=== PATIENT | female | born 1950 | race Caucasian/White ===

== ENCOUNTER 2017-10-12 10:14 | Outpatient (CLI) | payer OTHER ==
[~2017-10-12 10:14] MED LIST: SYNTHROID50 MCG
== END 2017-10-12 10:18 | disposition home or self-care (01) ==
LOC: RAD 501 10:14
DX: R06.02 Shortness of breath (principal)

== ENCOUNTER 2018-07-11 08:10 | Outpatient (CLI) | payer OTHER | END 2018-07-11 08:18 | disposition home or self-care (01) | LOC: TOM 08:10 | DX: R10.84 Generalized abdominal pain (principal) ==

== ENCOUNTER 2018-09-26 07:13 | Outpatient (CLI) | payer OTHER | END 2018-09-26 07:17 | disposition home or self-care (01) | LOC: RAD 07:13 | DX: J44.1 Chronic obstructive pulmonary disease with (acute) exacerbation (principal) ==

== ENCOUNTER 2019-01-10 07:56 | Outpatient (CLI) | payer OTHER | END 2019-01-10 07:59 | disposition home or self-care (01) | LOC: TOM 07:56 | DX: R10.9 Unspecified abdominal pain (principal) ==

== ENCOUNTER → 2019-01-17 | Outpatient (CLI) | payer OTHER | END | disposition home or self-care (01) | LOC: MAMO-SONO 01-08 07:45 | DX: Z12.31 Encounter for screening mammogram for malignant neoplasm of breast (principal); Z87.898 Personal history of other specified conditions; N63.10 Unspecified lump in the right breast, unspecified quadrant; N63.20 Unspecified lump in the left breast, unspecified quadrant ==

== ENCOUNTER 2019-03-26 07:16 | Outpatient (CLI) | payer OTHER | END 2019-03-26 07:18 | disposition home or self-care (01) | LOC: NUCLEAR 07:16 | DX: K80.18 Calculus of gallbladder with other cholecystitis without obstruction (principal) | CPT/HCPCS: 78227; A9537 ==

== ENCOUNTER 2019-05-10 11:17 | Outpatient (CLI) | payer OTHER | END 2019-05-10 11:24 | disposition home or self-care (01) | LOC: RAD 11:17 | DX: M54.5 Low back pain (principal) ==

== ENCOUNTER 2019-05-31 08:10 | Outpatient (CLI) | payer OTHER | END 2019-05-31 08:27 | disposition home or self-care (01) | LOC: MRI 08:10 | DX: M54.5 Low back pain (principal) | CPT/HCPCS: 72148 ==

== ENCOUNTER → 2019-08-21 | Outpatient (CLI) | payer OTHER | END | disposition home or self-care (01) | LOC: RAD 07:45 → TOM 07:45 → RAD 09:02 | DX: M25.512 Pain in left shoulder (principal); R10.84 Generalized abdominal pain ==

== ENCOUNTER 2019-11-21 07:56 | Outpatient (CLI) | payer OTHER | END 2019-11-21 13:50 | disposition home or self-care (01) | LOC: RAD 07:56 | DX: N30.00 Acute cystitis without hematuria (principal) ==

== ENCOUNTER 2020-04-03 07:00 | Outpatient (CLI) | payer OTHER | END 2020-04-03 15:00 | disposition home or self-care (01) | LOC: LAB 07:00 | PROVIDERS: ATTEND Urology | DX: N39.0 Urinary tract infection, site not specified (principal); D68.8 Other specified coagulation defects; I10 Essential (primary) hypertension ==

== ENCOUNTER 2020-04-23 05:50 | Day surgery (SDC) | payer OTHER ==
[~2020-04-23 05:50] MED LIST changes: +ALENDRONATE SOD70 MG PO; +ATORVASTATIN CA40 MG PO; +CARAFATE1 GM PO; +LEVOXYL50 MCG PO; +VITAMIN D310 MC4 PO
== END 2020-04-23 13:05 | disposition home or self-care (01) ==
LOC: CIR.AMB 05:50
PROVIDERS: ATTEND Urology
DX: N30.10 Interstitial cystitis (chronic) without hematuria (principal); Z20.828 Contact with and (suspected) exposure to other viral communicable diseases

== ENCOUNTER 2021-01-19 09:25 | Outpatient (CLI) | payer OTHER | END 2021-01-19 09:30 | disposition home or self-care (01) | LOC: MAMO-SONO 09:25 | PROVIDERS: ATTEND Internal Medicine | DX: Z12.31 Encounter for screening mammogram for malignant neoplasm of breast (principal); Z87.898 Personal history of other specified conditions; N63.0 Unspecified lump in unspecified breast ==

== ENCOUNTER 2021-06-24 07:11 | Outpatient (CLI) | payer OTHER | END 2021-06-24 07:17 | disposition home or self-care (01) | LOC: RAD 07:11 | PROVIDERS: ATTEND Internal Medicine | DX: M15.0 Primary generalized (osteo)arthritis (principal); S47.1XXA Crushing injury of right shoulder and upper arm, initial encounter ==

== ENCOUNTER 2021-09-01 11:09 | Outpatient (CLI) | payer OTHER | END 2021-09-01 11:15 | disposition home or self-care (01) | LOC: RAD 11:09 | PROVIDERS: ATTEND Internal Medicine | DX: M54.17 Radiculopathy, lumbosacral region (principal) ==

== ENCOUNTER 2021-10-14 08:11 | Outpatient (CLI) | payer OTHER | END 2021-10-14 08:13 | disposition home or self-care (01) | LOC: TOM 08:11 | PROVIDERS: ATTEND Internal Medicine | DX: R10.9 Unspecified abdominal pain (principal) ==

== ENCOUNTER 2022-04-27 08:12 | Outpatient (CLI) | payer OTHER | END 2022-04-27 08:20 | disposition home or self-care (01) | LOC: MRI 08:12 | PROVIDERS: ATTEND Internal Medicine | DX: N18.2 Chronic kidney disease, stage 2 (mild) (principal) | CPT/HCPCS: 72148 ==

== ENCOUNTER → 2022-04-29 07:00 | Outpatient (CLI) | payer OTHER | END | disposition home or self-care (01) | LOC: LAB 07:00 | PROVIDERS: ATTEND Internal Medicine | DX: N18.2 Chronic kidney disease, stage 2 (mild) (principal) ==

== ENCOUNTER 2022-10-27 09:29 | Outpatient (CLI) | payer OTHER | END 2022-10-27 09:36 | disposition home or self-care (01) | LOC: MAMO-SONO 09:29 | PROVIDERS: ATTEND Internal Medicine | DX: Z12.31 Encounter for screening mammogram for malignant neoplasm of breast (principal) ==

== ENCOUNTER → 2022-10-27 | Outpatient (CLI) | payer OTHER | END | disposition home or self-care (01) | LOC: NUCLEAR 10-12 11:00 | PROVIDERS: ATTEND Internal Medicine | DX: M81.0 Age-related osteoporosis without current pathological fracture (principal) ==

== ENCOUNTER 2023-03-01 09:31 | Outpatient (CLI) | payer OTHER | END 2023-03-01 09:40 | disposition home or self-care (01) | LOC: TOM 09:31 | PROVIDERS: ATTEND Internal Medicine | DX: Z12.2 Encounter for screening for malignant neoplasm of respiratory organs (principal); Z87.891 Personal history of nicotine dependence ==

== ENCOUNTER 2023-03-24 10:23 | Outpatient (CLI) | payer OTHER | END 2023-03-24 10:29 | disposition home or self-care (01) | LOC: RAD 10:23 | PROVIDERS: ATTEND Internal Medicine | DX: E04.1 Nontoxic single thyroid nodule (principal); M25.511 Pain in right shoulder; M54.2 Cervicalgia ==

== ENCOUNTER 2023-04-25 09:00 | Outpatient (CLI) | payer OTHER | END 2023-04-25 10:31 | disposition home or self-care (01) | LOC: SONOGRAMA 09:00 | PROVIDERS: ATTEND Pathology Anatomic Pathology & Clinical Pathology | DX: D44.0 Neoplasm of uncertain behavior of thyroid gland (principal); E07.9 Disorder of thyroid, unspecified ==

== ENCOUNTER 2024-06-14 08:21 | Outpatient (CLI) | payer OTHER | END 2024-06-14 08:44 | disposition home or self-care (01) | LOC: RAD 08:21 | DX: M48.061 Spinal stenosis, lumbar region without neurogenic claudication (principal) ==

== ENCOUNTER 2024-09-19 08:09 | Outpatient (CLI) | payer OTHER | END 2024-09-19 08:14 | disposition home or self-care (01) | LOC: RAD 08:09 | PROVIDERS: ATTEND Orthopaedic Surgery | DX: M41.06 Infantile idiopathic scoliosis, lumbar region (principal) ==

== ENCOUNTER 2025-07-02 07:25 | Outpatient (CLI) | payer OTHER | END 2025-07-02 07:28 | disposition home or self-care (01) | LOC: RAD 07:25 | DX: S72.002A Fracture of unspecified part of neck of left femur, initial encounter for closed fracture (principal) ==